=== PATIENT | female | born 1945 | race Caucasian/White ===

== ENCOUNTER 2017-03-13 18:55 | Emergency (ER) | payer MEDICARE, BC ==
[~2017-03-13] VITALS: Ht 154.9 cm; Wt 82.6 kg
[~2017-03-13 18:55] MED LIST: B12 INJ.,1000 MCG/M IM; BACTRIM DS 8001 TAB PO; BENICAR HCT 251 TAB PO; CLONAZEPAM1 MG PO; DICLOFENAC 50MG50 MG PO; GLUMETZA500 MG PO; INDAPAMIDE2.5 MG PO; KEFLEX500 M1 PO; KLOR-CON M2020 MEQ PO; LEVAQUIN750 MG PO; LEXAPRO10 MG PO; LOMOTIL 2.5MG.2.5 MG PO; LORTAB 7.5/3251 TAB PO; LOSARTAN POTAS100 MG PO; MACRODANTIN50 MG PO; NAPROSYN 500MG500 MG PO; NYSTATIN XX; PANTOPRAZOLE SO40 MG PO; PRAVASTATIN SOD80 MG PO; PREMARIN0.625 MG PO; PREVACID 30MG C30 M1 OR; SPIRIVA HA1 PUFF/INH IH; SYNTHROID 0.1M0.1 MG PO; SYNTHROID0.075 MG PO; ZYRTEC10 MG PO
--- OUTSIDE RECORDS SUMMARY | 2017-03-13 19:01 | External Medical Summary Rpt | CCD ---
Author Author , SKY SWANSON Address Unknown Phone [email or web address] Immunization Name Date Rout CVX Reac Dose Comm Prov Is Faci e tion ent ider Refu lity Give sed n Infl 09-0 Intr 0.5 Hist PD20 No PD20 uenz 8-20 amus mL oric 255 255 a 17 cula al Quad r Info rmat W/Pr ion es - Sour ce Unsp ecif ied
--- OUTSIDE RECORDS SUMMARY | 2017-03-13 19:01 | External Medical Summary Rpt | CCD ---
Author Author , SKY SWANSON Address Unknown Phone [email or web address] Purpose Continuity of Care Document - 07-23-2016 through 2016 Problems Code Diagnosis DOS Provider Status B95.7 Other 08-13-2016 staphylococ cus as the cause of diseases classified elsewhere B96.20 Unspecified 08-13-2016 Escherichia coli [E. 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 E78.5 Hyperlipide 08-13-2016 sofia, unspecified E87.70 Fluid 08-13-2016 overload, unspecified F32.9 Major 08-13-2016 depressive disorder, single episode, unspecified F41.9 Anxiety 08-13-2016 disorder, unspecified G81.94 Hemiplegia, 08-13-2016 unspecified affecting left nondominant side G93.41 Metabolic 08-13-2016 encephalopa thy I10 Essential 08-13-2016 (primary) hypertensio n J81.1 Chronic 08-13-2016 pulmonary edema J96.01 Acute 08-13-2016 respiratory failure with hypoxia K21.9 Gastro-esop 08-13-2016 hageal reflux disease without esophagitis K58.9 Irritable 08-13-2016 bowel syndrome without diarrhea 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 Urinary 08-13-2016 tract infection, site not specified R13.10 Dysphagia, 08-13-2016 unspecified R40.2113 Coma scale, 08-13-2016 eyes open, never, at hospital admission R40.2132 Coma scale, 08-13-2016 eyes open, to sound, at arrival to emergency department R40.2212 Coma scale, 08-13-2016 best verbal response, none, at arrival to emergency department R40.2213 Coma scale, 08-13-2016 best verbal response, none, at hospital admission R40.2313 Coma scale, 08-13-2016 best motor response, none, at hospital admission R40.2352 Coma scale, 08-13-2016 best motor response, localizes pain, at arrival to emergency department R78.81 Bacteremia 08-13-2016 S06.5X0A Traumatic 08-13-2016 subdural hemorrhage without loss of consciousne ss, initial encounter S06.6X0A Traumatic 08-13-2016 subarachnoi d hemorrhage without loss of consciousne ss, initial encounter T83.518A Infection 08-13-2016 and inflammator y reaction due to other urinary catheter, initial encounter W19.XXXA Unspecified 08-13-2016 fall, initial encounter Z68.35 Body mass 08-13-2016 index (BMI) 35.0-35.9, adult Z79.84 residential 08-13-2016 (current) use of oral hypoglycemi c drugs I62.01 Nontraumati 08-08-2016 c acute subdural hemorrhage I62.00 Nontraumati 07-23-2016 c subdural hemorrhage, unspecified E86.0 DEHYDRATION N12 TUBULO-INTE RSTITIAL NEPHRITIS, NOT SPCF ACUTE OR CHRONIC Results Labs Lab Lab Date Result Refere Interp Status Commen Order Detail nces retati t Range on Urinalysis dipstick W Reflex Microscopic panel in Urine (09-05-2016 23:25) Bacteri 2+ O complet a 017 ed [Presen 23:25 ce] in Urine sedimen t by Light microsc opy Erythro 20-50 0 complet cytes 017 ed [Presen 23:25 ce] in Urine sedimen t by Light microsc opy Leukocy 20-50 O complet sarah 017 wbc/hpf ed [#/volu 23:25 me] in Urine Urinalysis dipstick W Reflex Microscopic panel in Urine (09-05-2016 23:25) Appeara SL CLEAR complet nce of 017 CLOUDY ed Urine 23:25 Bilirub NEGATIV NEG complet in 017 E ed [Presen 23:25 ce] in Urine by Test strip Erythro 3+ NEG Abnorma complet cytes 017 l ed [Presen 23:25 ce] in Urine Color YELLOW YELLOW complet of 017 ed Urine 23:25 Ketones NEGATIV NEG complet 017 E ed [Presen 23:25 ce] in Urine by Automat ed test strip Mucus 2+ NEG Abnorma complet [Presen 017 l ed ce] in 23:25 Urine sedimen t by Light microsc opy Nitrite POSITIV NEG Abnorma complet 017 E l ed [Presen 23:25 ce] in Urine by Test strip Urobili 0.2 NEG complet nogen 017 ed [Presen 23:25 ce] in Urine by Test strip
--- OUTSIDE RECORDS SUMMARY | 2017-03-13 19:01 | External Medical Summary Rpt ---
Author Author SKY Sh[employer], [employer] Address Unknown Phone Unavailable Results Urinalysis dipstick W Reflex Microscopic panel in Urine Observa Value Referen Units Interpr Notes Date tion ce etation Range Appeara SL CLEAR No No No September 05 nce of CLOUDY informa informa informa 2016 Urine tion in tion in tion in 11:25 source source source PM data data data Bacteri 2+ O No No No September 05 a informa informa informa 2016 [Presen tion in tion in tion in 11:25 ce] in source source source PM Urine data data data sedimen t by Light microsc opy Bilirub NEGATIV NEG No No No September 05 in E informa informa informa 2016 [Presen tion in tion in tion in 11:25 ce] in source source source PM Urine data data data by Test strip Erythro 3+ NEG No Abnorma No September 05 cytes informa l informa 2016 [Presen tion in tion in 11:25 ce] in source source PM Urine data data Color YELLOW YELLOW No No No September 05 of informa informa informa 2016 Urine tion in tion in tion in 11:25 source source source PM data data data Glucose NEG No No No September 05 [Mass/vol informati informati informati 2017 ume] in on in on in on in 11:25 PM Urine by source source source Test data data data strip Ketones NEGATIV NEG mg/dL No No September 05 E informa informa 2016 [Presen tion in tion in 11:25 ce] in source source PM Urine data data by Automat ed test strip Mucus 2+ NEG No Abnorma No September 05 [Presen informa l informa 2016 ce] in tion in tion in 11:25 Urine source source PM sedimen data data t by Light microsc opy Nitrite POSITIV NEG No Abnorma No September 05 E informa l informa 2016 [Presen tion in tion in 11:25 ce] in source source PM Urine data data by Test strip pH of 5.0 - 8.5 No Normal No September 05 Urine informati informati 2017 on in on in 11:25 PM source source data data Protein NEG mg/dL High No September 05 [Mass/vol informati 2016 ume] in on in 11:25 PM Urine by source Automated data test strip Erythro 20-50 0 rbc/hpf No No September 05 cytes informa informa 2016 [Presen tion in tion in 11:25 ce] in source source PM Urine data data sedimen t by Light microsc opy Specific 1.005 - No Normal No September 05 gravity 1.030 informati informati 2016 of Urine on in on in 11:25 PM source source data data Urobili 0.2 NEG E.U./dL No No September 05 nogen informa informa 2016 [Presen tion in tion in 11:25 ce] in source source PM Urine data data by Test strip Leukocy [20 O wbc/hpf No No September 05 sarah wbc/hpf informa informa 2016 [#/volu ; 50 tion in tion in 11:25 me] in wbc/hpf source source PM Urine ] data data Urinalysis dipstick W Reflex Microscopic panel in Urine Observa Value Referen Units Interpr Notes Date tion ce etation Range Appeara SL CLEAR No No No September 05 nce of CLOUDY informa informa informa 2016 Urine tion in tion in tion in 11:25 source source source PM data data data Bilirub NEGATIV NEG No No No September 05 in E informa informa informa 2016 [Presen tion in tion in tion in 11:25 ce] in source source source PM Urine data data data by Test strip Erythro 3+ NEG No Abnorma No September 05 cytes informa l informa 2016 [Presen tion in tion in 11:25 ce] in source source PM Urine data data Color YELLOW YELLOW No No No September 05 of informa informa informa 2017 Urine tion in tion in tion in 11:25 source source source PM data data data Glucose NEG No No No September 05 [Mass/vol informati informati informati 2016 ume] in on in on in on in 11:25 PM Urine by source source source Test data data data strip Ketones NEGATIV NEG mg/dL No No September 05 E informa informa 2016 [Presen tion in tion in 11:25 ce] in source source PM Urine data data by Automat ed test strip Mucus 2+ NEG No Abnorma No September 05 [Presen informa l informa 2016 ce] in tion in tion in 11:25 Urine source source PM sedimen data data t by Light microsc opy Nitrite POSITIV NEG No Abnorma No September 05 E informa l informa 2016 [Presen tion in tion in 11:25 ce] in source source PM Urine data data by Test strip pH of 5.0 - 8.5 No Normal No September 05 Urine informati informati 2016 on in on in 11:25 PM source source data data Protein NEG mg/dL High No September 05 [Mass/vol 2016 ume] in on in 11:25 PM Urine by source Automated data test strip Specific 1.005 - No Normal No September 05 gravity 1.030 informati 2016 of Urine on in on in 11:25 PM source source data data Urobili 0.2 NEG E.U./dL No No September 05 nogen informa informa 2016 [Presen tion in tion in 11:25 ce] in source source PM Urine data data by Test strip CBC W Auto Differential panel in Blood Observa Value Referen Units Interpr Notes Date tion ce etation Range Basophils 0 - 0.2 K/MM3 Normal No September 052016 [#/volume on in 11:20 PM ] in source Blood by data Automated count Basophils 0.1 - 2.0 % Normal No September 052016 leukocyte on in 11:20 PM s in source Blood by data Automated count Eosinophi 0.0 - 0.4 K/mm3 Normal No September 05 ls ati 2016 [#/volume on in 11:20 PM ] in source Blood by data Automated count Eosinophi 0.1 - % Normal No September 05 ls/100 12.0 inform2016 leukocyte on in 11: PM s in source Blood by data Automated count Granulocy 1.8 - 7.8 K/mm3 Normal No September 05 sarah informati 2016 [#/volume on in 11:20 PM ] in source Blood by data Automated count Granulocy 37.0 - % Normal No September 05 sarah/100 80.0 informati 2016 leukocyte on in 11:20 PM s in source Blood by data Automated count Hematocri 37.0 - % Low No September 05 t [Volume 47.0 inform2016 on in 11:20 PM Fraction] source of Blood data Hemoglobi 12.2 - g/dL Low No September 05 n 16.2 informati 2016 [Mass/vol on in 11:20 PM ume] in source Blood data Lymphocyt 0.7 - 4.5 K/mm3 Normal No September 05 es inform2016 [#/volume on in 11:20 PM ] in source Unspecifi data ed specimen by Automated count Lymphocyt 10 - 50.0 % Normal No September 05 es informati 2016 [#/volume on in 11:20 PM ] in source Unspecifi data ed specimen by Automated count Erythrocy 27 - 31.2 pg Normal No September 05 te mean 2016 corpuscul on in 11:20 PM ar source hemoglobi data n [Entitic mass] Erythrocy 31.8 - g/dl Normal No September 05 te mean 35.4 2016 corpuscul on in 11:20 PM ar source hemoglobi data n concentra tion [Mass/vol ume] by Automated count Erythrocy 82.2 - fl Normal No September 05 te mean 97.8 inform2016 corpuscul on in 11:20 PM ar volume source [Entitic data volume] by Automated count Monocytes 0.1 - 1.0 K/mm3 Normal No September 052016 [#/volume on in 11:20 PM ] in source Blood by data Automated count Monocytes 1.7 - 9.3 % Normal No September 05 /100 2016 leukocyte on in 11:20 PM s in source Blood by data Automated count Platelet 7.4 - fl Low No September 05 mean 10.4 inform2016 volume on in 11:20 PM [Entitic source volume] data in Blood by Automated count Platelets 142 - 424 K/mm3 Normal No September 05 inform2016 [#/volume on in 11:20 PM ] in source Blood data Erythrocy 4.2 - 5.4 M/mm3 Low No September 05 sarah informati 2016 [#/volume on in 11:20 PM ] in source Amniotic data fluid Erythrocy 11.5 - % Normal No September 05 te 17.5 inform2016 distribut on in 11:20 PM ion width source [Entitic data volume] by Automated count Leukocyte 4.8 - K/MM3 Normal No September 05 s 10.8 informati 2017 [#/volume on in 11:20 PM ] in source Blood data Lactate [Moles/volume] in Blood Observa Value Referen Units Interpr Notes Date tion ce etation Range Lactate 0.4 - 2.0 mmol/L Normal No September 05 [Moles/vo informati 2017 lume] in on in 11:20 PM Blood source data Comprehensive metabolic 2000 panel in Serum or Plasma Observa Value Referen Units Interpr Notes Date tion ce etation Range Albumin/G 1.1 - 1.8 No Low No September 05 lobulin informati informati 2016 [Mass on in on in 11:20 PM ratio] in source source Serum or data data Plasma Albumin 3.4 - 5.0 gm/dL Low No September 05 [Mass/vol informati 2016 ume] in on in 11:20 PM Serum or source Plasma data Alkaline 46 - 116 U/L Normal No September 05 phosphata informati 2016 se on in 11: PM [Enzymati source c data activity/ volume] in Serum or Plasma Bilirubin 0.2 - 1.0 mg/dL Normal No September 05 .total informati 2016 [Mass/vol on in 11: PM ume] in source Serum or data Plasma Urea 7 - 18 mg/dL Normal No September 05 nitrogen informati 2016 [Mass/vol on in 11:20 PM ume] in source Serum or data Plasma Calcium 8.5 - mg/dL Low No September 05 [Mass/vol 10.1 informati 2016 ume] in on in 11:20 PM Serum or source Plasma data Chloride 98 - 107 mmoL/L Low No September 05 [Moles/vo informati 2017 lume] in on in 11:20 PM Serum or source Plasma data Carbon 21.0 - mmoL/L Normal No September 05 dioxide, 32.0 informati 2016 total on in 11:20 PM [Moles/vo source lume] in data Serum or Plasma Creatinin 0.55 - mg/dL High No September 05 e 1.02 informati 2017 [Mass/vol on in 11:20 PM ume] in source Serum or data Plasma Creatinin 50 - 200 ML/MIN Low No September 05 e renal informati 2017 clearance on in 11: PM source predicted data by Cockcroft -Gault formula Estimated 59- ML/MIN Low REFERENCE September 05 RANGE: 2016 glomerula >60 11:20 PM r ML/MIN/1. filtratio 73 SQUARE n rate METERSIf (GF this patient is -A merican, then multiply theresult by 1.210. Globulin 1.3 - 3.2 gm/dL High No September 05 [Mass/vol informati 2016 ume] in on in 11:20 PM Serum source data Glucose 74 - 106 mg/dL High No September 05 [Mass/vol informati 2016 ume] in on in 11:20 PM Serum or source Plasma data Potassium 3.5 - 5.1 mmoL/L Low No September 05 informati 2016 [Moles/vo on in 11:20 PM lume] in source Serum or data Plasma Sodium 136 - 145 mmoL/L Low No September 05 [Moles/vo informati 2016 lume] in on in 11:20 PM Serum or source Plasma data Aspartate 15 - 37 U/L Normal No September 05 inform2016 aminotran on in 11:20 PM sferase source [Enzymati data c activity/ volume] in Serum or Plasma Alanine 12 - 78 U/L Normal No September 05 aminotran inform2016 sferase on in 11:20 PM [Enzymati source c data activity/ volume] in Serum or Plasma Protein 6.4 - 8.2 gm/dL Normal No September 05 [Mass/vol informati 2016 ume] in on in 11:20 PM Serum or source Plasma data Levetiracetam [Mass/volume] in Serum or Plasma Observa Value Referen Units Interpr Notes Date tion ce etation Range Levetirac 10.0 - ug/mL No Performed September 05 etam 40.0 informati at: BN 2017 3:00 [Mass/vol on in - [facility] PM ume] in source Serum or data [facility] Plasma [id number] [place], [place] [id number] [employer] Specialist: Ottoniel Paul MD, Phone: [phone] Free T4 & TSH panel in Serum or Plasma Observa Value Referen Units Interpr Notes Date tion ce etation Range Thyroxine 5.93 - ug/dl Normal No September 05 (T4) 13.13 informati 2016 3:00 free on in PM index in source Serum or data Plasma Triiodoth 31 - 39 % Normal No September 05 yronine informati 2016 3:00 (T3) on in PM resin source uptake in data Serum or Plasma Thyroxine 4.7 - ug/dl Normal No September 05 (T4) 13.3 informati 2016 3:00 [Mass/vol on in PM ume] in source Serum or data Plasma Thyrotrop 0.358 - uIU/ml No No September 05 in 3.740 informati informati 2016 3:00 [Units/vo on in on in PM lume] in source source Serum or data data Plasma Comprehensive metabolic 2000 panel in Serum or Plasma Observa Value Referen Units Interpr Notes Date tion ce etation Range Albumin/G 1.1 - 1.8 No Low No September 05 lobulin informati informati 2016 3:00 [Mass on in on in PM ratio] in source source Serum or data data Plasma Albumin 3.4 - 5.0 gm/dL Low No September 05 [Mass/vol informati 2016 3:00 ume] in on in PM Serum or source Plasma data Alkaline 46 - 116 U/L Normal No September 05 phosphata informati 2016 3:00 se on in PM [Enzymati source c data activity/ volume] in Serum or Plasma Bilirubin 0.2 - 1.0 mg/dL Normal No September 05 .total informati 2016 3:00 [Mass/vol on in PM ume] in source Serum or data Plasma Urea 7 - 18 mg/dL Normal No September 05 nitrogen informati 2016 3:00 [Mass/vol on in PM ume] in source Serum or data Plasma Calcium 8.5 - mg/dL Low No September 05 [Mass/vol 10.1 informati 2016 3:00 ume] in on in PM Serum or source Plasma data Chloride 98 - 107 mmoL/L Low No September 05 [Moles/vo informati 2016 3:00 lume] in on in PM Serum or source Plasma data Carbon 21.0 - mmoL/L Normal No September 05 dioxide, 32.0 informati 2016 3:00 total on in PM [Moles/vo source lume] in data Serum or Plasma Creatinin 0.55 - mg/dL High No September 05 e 1.02 informati 2016 3:00 [Mass/vol on in PM ume] in source Serum or data Plasma Creatinin 50 - 200 ML/MIN Low No September 05 e renal informati 2016 3:00 clearance on in PM source predicted data by Cockcroft -Gault formula Estimated 59- ML/MIN Low REFERENCE September 05 RANGE: 2016 3:00 glomerula >60 PM r ML/MIN/1. filtratio 73 SQUARE n rate METERSIf (GF this patient is -A merican, then multiply theresult by 1.210. Globulin 1.3 - 3.2 gm/dL High No September 05 [Mass/vol informati 2016 3:00 ume] in on in PM Serum source data Glucose 74 - 106 mg/dL High No September 05 [Mass/vol informati 2016 3:00 ume] in on in PM Serum or source Plasma data Potassium 3.5 - 5.1 mmoL/L Low No September 05 informati 2016 3:00 [Moles/vo on in PM lume] in source Serum or data Plasma Sodium 136 - 145 mmoL/L Low No September 05 [Moles/vo informati 2016 3:00 lume] in on in PM Serum or source Plasma data Aspartate 15 - 37 U/L Normal No September 05 informati 2016 3:00 aminotran on in PM sferase source [Enzymati data c activity/ volume] in Serum or Plasma Alanine 12 - 78 U/L Normal No September 05 aminotran informati 2016 3:00 sferase on in PM [Enzymati source c data activity/ volume] in Serum or Plasma Protein 6.4 - 8.2 gm/dL Normal No September 05 [Mass/vol informati 2016 3:00 ume] in on in PM Serum or source Plasma data INR in Blood by Coagulation assay Observa Value Referen Units Interpr Notes Date tion ce etation Range IS PATIENT ON ANTICOAGULANTS? Y PTT RESULTS MUST BE CALLED IF PT ON HEPARIN!!! Y INR in 0.9 - 1.1 No High INDICATIO September 05 Blood by informati N 2016 3:00 Coagulati on in PM on assay source INR data RANGETHER APY FOR DVT, PE, ATRIAL FIB; 2.0 - 3.0PROPHY LAXIS FOR VTETHERAP Y FOR MECHANICA L HEART 2.5 - 3.5VALVE; PREVENTIO N OF SYSTEMICE MBOLISM SECONDARY TO AMI Prothromb 9.4 - SECONDS High No September 05 in time 11.8 informati 2016 3:00 (PT) in on in PM Platelet source poor data plasma by Coagulati on assay Activated partial thrombplastin time (aPTT) in Platelet poor plasma by Coagulation assay Observa Value Referen Units Interpr Notes Date tion ce etation Range IS PATIENT ON ANTICOAGULANTS? Y PTT RESULTS MUST BE CALLED IF PT ON HEPARIN!!! Y Activated 23.6 - SECONDS Normal No September 05 partial 34.0 2016 3:00 thrombpla on in PM stin time source (aPTT) data in Platelet poor plasma by Coagulati on assay CBC W Auto Differential panel in Blood Observa Value Referen Units Interpr Notes Date tion ce etation Range Basophils 0 - 0.2 K/MM3 Normal No September 052016 3:00 [#/volume on in PM ] in source Blood by data Automated count Basophils 0.1 - 2.0 % Normal No September 052016 3:00 leukocyte on in PM s in source Blood by data Automated count Eosinophi 0.0 - 0.4 K/mm3 Normal No September 05 ls 2016 3:00 [#/volume on in PM ] in source Blood by data Automated count Eosinophi 0.1 - % Normal No September 05 ls/100 12.0 inform2016 3:00 leukocyte on in PM s in source Blood by data Automated count Granulocy 1.8 - 7.8 K/mm3 Normal No September 05 sarah 2016 3:00 [#/volume on in PM ] in source Blood by data Automated count Granulocy 37.0 - % High No September 05 sarah/100 80.0 ati 2016 3:00 leukocyte on in PM s in source Blood by data Automated count Hematocri 37.0 - % Low No September 05 t [Volume 47.0 informati 2016 3:00 on in PM Fraction] source of Blood data Hemoglobi 12.2 - g/dL Low No September 05 n 16.2 ati 2016 3:00 [Mass/vol on in PM ume] in source Blood data Lymphocyt 0.7 - 4.5 K/mm3 Normal No September 05 es 2016 3:00 [#/volume on in PM ] in source Unspecifi data ed specimen by Automated count Lymphocyt 10 - 50.0 % Normal No September 05 es informati 2016 3:00 [#/volume on in PM ] in source Unspecifi data ed specimen by Automated count Erythrocy 27 - 31.2 pg Normal No September 05 te mean inform2016 3:00 corpuscul on in PM ar source hemoglobi data n [Entitic mass] Erythrocy 31.8 - g/dl Normal No September 05 te mean 35.4 inform2016 3:00 corpuscul on in PM ar source hemoglobi data n concentra tion [Mass/vol ume] by Automated count Erythrocy 82.2 - fl Normal No September 05 te mean 97.8 informati 2016 3:00 corpuscul on in PM ar volume source [Entitic data volume] by Automated count Monocytes 0.1 - 1.0 K/mm3 Normal No September 05 inform2016 3:00 [#/volume on in PM ] in source Blood by data Automated count Monocytes 1.7 - 9.3 % Normal No September 05 / informati 2016 3:00 leukocyte on in PM s in source Blood by data Automated count Platelet 7.4 - fl Low No September 05 mean 10.4 informati 2016 3:00 volume on in PM [Entitic source volume] data in Blood by Automated count Platelets 142 - 424 K/mm3 Normal No September 05 informati 2016 3:00 [#/volume on in PM ] in source Blood data Erythrocy 4.2 - 5.4 M/mm3 Low No September 05 sarah informati 2016 3:00 [#/volume on in PM ] in source Amniotic data fluid Erythrocy 11.5 - % Normal No September 05 te 17.5 informati 2016 3:00 distribut on in PM ion width source [Entitic data volume] by Automated count Leukocyte 4.8 - K/MM3 Normal No September 05 s 10.8 informati 2016 3:00 [#/volume on in PM ] in source Blood data
--- OUTSIDE RECORDS SUMMARY | 2017-03-13 19:01 | External Medical Summary Rpt ---
Author Author [employer], [employer] Organization [employer] Address Unknown [...] PM ume] in source Serum or data [facility] Plasma [id number] [place], [place] [id number] [employer] Hauler: Ottoniel Paul MD, Phone: [phone] 4 Free T4 & TSH panel in [...]
--- OUTSIDE RECORDS SUMMARY | 2017-03-13 19:01 | External Medical Summary Rpt | CCD ---
Author Author , SKY SWANSON Address Unknown Phone [email or web address] Physical Immunization Name Date Rout CVX Reac Dose Comm Prov Is Faci e tion ent ider Refu lity Give sed n Infl 09-0 Intr 0.5 Hist PD20 No PD20 uenz 8-20 amus mL oric 255 255 a 17 cula al Quad r Info rmat W/Pr ion es - Sour ce Unsp ecif ied
--- OUTSIDE RECORDS SUMMARY | 2017-03-13 19:01 | External Medical Summary Rpt | CCD ---
Author Author , SKY SWANSON Address Unknown Phone [email or web address] Purpose Continuity of Care Document - 07-23-2016 [...] mass 08-13-2016 index (BMI) 35.0-35.9, adult Z79.84 care home 08-13-2016 (current) use of oral hypoglycemi c [...]
[2017-03-13] MEDS ORDERED: PREDNISONE 20MG20 MG PO (19:27)
[2017-03-13] MEDS ORDERED: ZITHROMAX Z PA250 MG PO (19:27)
--- NOTE | 2017-03-13 19:28 | Urgent Treatment Center Report ---
History of Present Issue Date/Time Seen by Provider 03/13/17 190 Visit Reason Pt arrived:Walked Presenting Problem:PT STATES COUGH AND CONGESTION SINCE WEDNESDAY Location if Accident: Onset of symptoms date/time:/ or onset unknown for:MEDICAL HX UNKNOWN Have you (or family members/close friends) recently traveled outside the [place]? N If Yes, where/when: Have you had exposure to infectious disease within the past month? TB? Other? Specify: Here w/ due to cold symptoms that have moved into chest. Started w/ rhinorrhea, head congestion on Wednesday (4 days ago). Saw PCP Wednesday for routine follow up and no symptoms then. Quickly moved into chest. Cough, chest congestion. No SOA, wheezing. Nonsmoker. Denies COPD/lung disease. Denies fever, aches, chills. Spouse w/ same symptoms x1.5 weeks. Has been taking sudafed without improvement. Nothing else. Hx DM and HTN. Reports both very well controlled and requesting steroids and antibiotics today even after discussing viral. Source patient Exam Limitations no limitations ALLERGIES Coded Allergies: aspirin (07/22/16) hydroxyzine (07/22/16) meperidine (From DEMEROL) (07/22/16) rosuvastatin (From CRESTOR) (07/22/16) Home Medications Active Scripts Levofloxacin (Levaquin 750MG Tab) 750 MG PO DAILY #5 TAB Prov: 09/06/16 Reported Medications Cetirizine Hcl (Zyrtec) 10 MG PO DAILY Escitalopram Oxalate (Lexapro) 10 MG PO DAILY Indapamide 2.5 MG PO DAILY Clonazepam (Clonazepam 1MG) 1 MG PO DAILY Pravastatin Sodium (Pravastatin 80MG) 80 MG PO DAILY METFORMIN HCL (Glumetza) 1,000 MG PO BID Conjugated Estrogens (Premarin) 1.25 MG PO DAILY Diphenoxylate W/ Atropine (Diphenoxylate-Atrop 2.5-0.025) 1 TAB PO Q12H PRN DIARRHEA Vitamin B12 (Cyanocobalamin Injection) 1,000 MCG IM Q 2 WEEKS Pantoprazole Sodium (Pantoprazole 40MG) 40 MG PO DAILY Losartan Potassium (Losartan 100MG) 100 MG PO DAILY DICLOFENAC SODIUM (Diclofenac 50MG) 75 MG PO QHS Levothyroxine Sodium (Synthroid 0.1MG) 0.1 MG PO DAILY History Medical History General CAD? No Angina: No [place]: No Hypertension? Yes Hyperlipidemia? Yes CHF? No DVT? No PE? No COPD? Yes Asthma? No Anemia? No GERD? No Gastric ulcers? No GI Bleed? No Hernia? Yes Thyroid Problems? No Hypothyroidism? No CVA? Yes Seizures? No Diabetes? Yes Insulin Dependent: No Insulin Pump: No Home FSBS? Yes Renal Insuffiency? No UTI? Yes Stones? No BPH? No GB Disease: Yes Nephritic Syndrome? No Asplenia? No Hepatitis? No Sickle Cell Disease? No Arthritis? No Migraines? No Cataracts? Yes Glaucoma? No MRSA? No HIV? No TB? No Anxiety? No Depression? No Cancer? No More? No Immunization HX DT/Tetanus > 10 YRS Flu 2011- Pneumonia Received In Past Surgical Hx Previous Surgery?Y Appendix Hysterect [place] CYST REMOVED -SINUS CARPEL TUNNEL RELEASE ROTATOR CUFF LEFT SIDE L KNEE REPLACEMENT VEIN ABLASION BACK SURGERY X3 RT KNEE REPLACEMENT Family History Family HX Diabetes Yes CAD Yes Hypertension Yes Hyperlipidemia Yes Cancer No TB No Social History Smoking Hx Smoker: Never Smoker Tobacco: No Alcohol Alcohol: No Review of Systems All Other Systems Reviewed and Negative Constitutional denies chills, denies malaise, denies weakness Eyes denies drainage ENT see HPI, nose congestion. denies: ear pain, ear discharge, throat pain. Respiratory see HPI Cardiovascular denies chest pain, denies palpitations Gastrointestinal denies no symptoms reported Musculoskeletal denies joint pain Skin denies rash Psychiatric/Neurological headache ("just pressure at first") Physical Exam Vital Signs Vital Signs Date Time Temp Pulse Resp B/P Pulse O2 O2 Flow FiO2 Ox Delivery Rate 03/13 1929 98.7 103 20 150/73 93 03/13 1905 98.7 103 20 150/73 93 General Appearance normal appearance, no apparent distress Eye Exam - bilateral eye normal exam Ear, Nose, Throat normal ENT inspection Neck non-tender, supple Respiratory Status Yes: non productive cough (no worse with deep breath). No: respiratory distress , use of accessory muscles, pain on inspiration, pain on expiration. Lung Sounds anterior: lungs clear. posterior: lungs clear. bilateral: lungs clear. Cardiovascular regular rate/rhythm, no peripheral edema, no murmur Neurologic alert, oriented x 3 Mental status normal mood/affect Skin normal color, warm/dry Lymphatic no adenopathy Medical Decision Making LABS/Meds/Orders Pt receiving controlled substance in ED? No Departure Departure Time of Disposition 1923 Disposition DC Home or Self Care(routine) Clinical Impression Primary Impression: Bronchitis, acute Qualifiers: Bronchitis organism: unspecified organism Qualified Code: J20.9 - Acute bronchitis, unspecified Condition STABLE Referrals Monica ARTEAGA,Adrián (Family) IMMEDIATELY for new or worsening symptoms OR no noticeable improvement over the next 48-72 hours. 911 for difficulty breathing or swallowing. Patient Instructions DI for Acute Bronchitis Additional Instructions * start antibiotic today. As we discussed, this is most likely viral. An antibiotic will not make you feel better. Antibiotics are for bacterial infections. Viruses have to run their course with treating the symptoms. I understand you would prefer to have an antibiotic because you know your body and I will give you one only for that reason. Remember that as we discussed, antibiotics do come with side effects and risk including allergic reactions and resistance. Resistance to antibiotics can cause serious complications in the future if there is no antibiotic to treat an infection you have. Carefully consider this before starting antibiotics for symptoms that are likely viral. However, if you start it, Be sure to complete entire prescription even if feeling better. * Monitor Temp. FU if fever develops. * humidifier/vaporizer/hot steamy shower * Mucinex during the day for your cough and cough suppressant only at night. Be sure to drink lots of water. Insurance may not cover a prescription of mucinex. Might be cheaper to get 400mg tablets and take 2 tablets morning, midday and evening all with lots of water. * Start steroid today only since you have taken them in the past and know your blood sugar does well with them. Monitor blood sugar and blood pressure closely. Be sure to follow up if they are elevated. Helps with inflammation therefore, cough and wheezing. Follow directions on package. Rvwd side effects. Discharge Counseling Counseled pt/family regarding diagnosis, medications/RX, home care, follow up needs Prescriptions Current Visit Scripts Azithromycin (Zithromycin (Z-OLAF) 250MG Tab) 250 MG PO DAILY #6 TAB TAKE TWO (2) TABLETS ON DAY 1, THEN ONE (1) TABLET DAY #2 THRU #5 Prednisone (Prednisone 20MG) 20 MG PO BID #10 TAB at 4236
[2017-03-13 19:29] VITALS: BP 150/73
== END 2017-03-13 19:29 | disposition home or self-care (01) ==
LOC: UTC 18:55
DX: J20.9 Acute bronchitis, unspecified (principal); E11.9 Type 2 diabetes mellitus without complications; J44.9 Chronic obstructive pulmonary disease, unspecified; E78.5 Hyperlipidemia, unspecified; I10 Essential (primary) hypertension; Z79.4 Long term (current) use of insulin

== ENCOUNTER → 2017-03-19 | Outpatient (CLI) | payer MEDICARE, BC ==
[~2017-03-19] MED LIST changes: +PREDNISONE 20MG20 MG PO; +ZITHROMAX Z PA250 MG PO
[2017-03-19 11:09] LABS: LYMPH # 2.1 K/mm3 (0.7-4.5)
[2017-03-19 11:17] LABS: HEMOGLOBIN 13.4 g/dL (12.2-16.2)
--- NOTE | 2017-03-19 11:39 | RADIOLOGY REPORT PS360 ---
BONE DENSITOMETRY(HIP:LT SPINE HISTORY: POST MENOPAUSAL ORDERING PHYSICIAN: Adrián Anderson MD PATIENT AGE: 71 years COMPARISON: None FINDINGS: The BMD measured at the forearm radius 33% is 0.891 g/sq cm with a T score of 0.0. Center normal with low fracture risk. The BMD mean of the hips is 1.343 g/sq cm the T score of 2.7. The BMD of the lumbar spine is abnormally elevated due to metallic screws. IMPRESSION: Normal bone density. Recommend follow-up exam March 2019
[2017-03-19 12:28] LABS: BUN 36 mg/dL (7-18)
[2017-03-19 12:32] LABS: GFR (ESTIMATED) 34 ML/MIN (59-)
--- NOTE | 2017-03-24 08:35 | RADIOLOGY REPORT PS360 ---
DIG MAMM-SCREEN FLORY W/CAD CAD Screening COMPARISON: Digital mammograms 12/26/2010 and 02/10/2013 INDICATION: There is no personal or family history of breast cancer. There is been previous biopsy right breast. TECHNIQUE: Standard CC and MLO images were obtained. R2 CAD reviewed. FINDINGS: Moderate scattered fibroglandular densities are seen throughout both breast. There are multiple benign-appearing calcifications in each breast. Again noted is asymmetric density inner quadrant left breast. This likely is asymmetric glandular tissue but it may have increased in size slightly from the previous exam. This could be due to differences in compression but recommend patient return for spot compression CC view and 90 degree lateral. There are no suspicious microcalcifications. IMPRESSION: Moderate diffuse breast density with possible subtle change in asymmetric density left breast and recommend patient return for additional views and ultrasound for better evaluation BI-RADS CATEGORY: 0_Incomplete: Need additional imaging RECOMMENDED FOLLOWUP: ADD ADDITIONAL IMAGING (A letter has been sent to the patient regarding results of the study.)
== END ==
LOC: LAB 09:56 → RAD 09:56
PROVIDERS: Internal Medicine Adolescent Medicine
DX: Z12.31 Encounter for screening mammogram for malignant neoplasm of breast (principal); Z78.0 Asymptomatic menopausal state; Z13.820 Encounter for screening for osteoporosis; E78.5 Hyperlipidemia, unspecified; E03.9 Hypothyroidism, unspecified; E53.8 Deficiency of other specified B group vitamins; E83.42 Hypomagnesemia
CPT/HCPCS: G0202